=== PATIENT | male | born 1975 | race Two or more races ===

== ENCOUNTER 2021-07-21 20:37 | Inpatient (IN) | payer MEDICAID ==
[~2021-07-21] VITALS: Ht 188 cm; Wt 97.5 kg
--- NOTE | 2021-07-21 20:46 | NUR ---
JESSICA FROM [facility] C/O ABD PAIN X 1 DAY, GIVEN NORCO AND MYLANTA AT 5PM . PATIENT ALERT AND ORIENTED X3. BROUGHT IN BY STRETCHER IN BED 10 ON MONITOR AWAITING MD SNOW.
[2021-07-21] MEDS ORDERED: MORPHINE SULFATE INJ 4 MG/ML DISP.SYRIN ONE ×2 (20:54→23:28)
[2021-07-21] MEDS ORDERED: ONDANSETRON HCL/PF 4 MG/2 ML VIAL ONE (20:54)
[2021-07-21] MEDS ORDERED: PANTOPRAZOLE 40 MG VIAL ONE (20:54)
--- NOTE | 2021-07-21 20:58 | NUR ---
BLOOD COLLECTED AND SENT TO LAB
--- NOTE | 2021-07-21 20:59 | NUR ---
PT UNABLE TO PROVIDE URINE AT THIS TIME, GIVEN URINAL.
--- NOTE | 2021-07-21 20:59 | NUR ---
EMT @ BEDSIDE FOR EKG
[2021-07-21] MEDS ORDERED: MORPHINE SULFATE INJ 2 MG/ML DISP.SYRIN IV ONE ×2 (21:00→23:30)
[2021-07-21] MEDS ORDERED: ONDANSETRON HCL/PF 4 MG/2 ML VIAL IVP ONE (21:00)
[2021-07-21] MEDS ORDERED: PANTOPRAZOLE 40 MG VIAL IV ONE (21:00)
--- NOTE | 2021-07-21 21:01 | NUR ---
[employer] TEACHER AT BEDSIDE
[2021-07-21 21:09] LABS: BASOPHILS # (AUTO) 0.1 K/uL (0.0-0.2); BASOPHILS % (AUTO) 0.6 % (0.0-2.0); EOSINOPHILS % (AUTO) 0.1 % (0.0-6.0); HEMATOCRIT 37 % (39-51); HEMOGLOBIN 12.3 g/dL (13.5-17.5); LYMPHOCYTES # (AUTO) 1.2 K/uL (0.8-4.8); LYMPHOCYTES % (AUTO) 7.1 % (20.0-44.0); MEAN CORPUSCULAR HGB CONC 33 g/dl (31.0-36.0); MEAN CORPUSCULAR VOLUME 86 fL (80-96); MONOCYTES # (AUTO) 1.8 K/uL (0.1-1.30); MONOCYTES % (AUTO) 10.4 % (2.0-12.0); NEUTROPHILS % (AUTO) 81.8 % (43.0-81.0); PLATELET COUNT (AUTO) 239 K/uL (150-450); RED BLOOD CELL COUNT(AUTO) 4.32 MIL/uL (4.5-6.0); WHITE BLOOD COUNT (AUTO) 17.1 K/uL (4.3-11.0)
[2021-07-21 21:25] LABS: ALBUMIN 3.2 g/dL (3.4-5.0); BILIRUBIN,DIRECT 0.2 mg/dL (0.0-0.2); BILIRUBIN,TOTAL 0.6 mg/dL (0.2-1.0); CALCIUM, SERUM 8.8 mg/dL (8.5-10.1); CREATININE 3.6 mg/dL (0.6-1.3); POTASSIUM 5.1 mmol/L (3.5-5.1); TOTAL PROTEIN, SERUM 7.9 g/dL (6.4-8.2)
--- NOTE | 2021-07-21 21:50 | NUR ---
COVID SWAB COLLECTED AND SENT TO LAB
[2021-07-21] MEDS ORDERED: PIPERACILLIN /TAZOBACTAM 3.375 G VIAL IV ONE (21:51)
[2021-07-21] MEDS ORDERED: INSULIN REGULAR, HUMAN 100 UNIT/ML 10 ML VIAL ONE (21:51)
[2021-07-21] MEDS ORDERED: INSULIN REGULAR, HUMAN 100 UNIT/ML 10 ML VIAL IV ONE (22:00)
[2021-07-21] MEDS ORDERED: PIPERACILLIN /TAZOBACTAM 3.375 G in IV D5W 50 ML IV ONE (22:00)
[2021-07-21] MEDS ORDERED: IV NS 0.9% 1,000 ML BAG IV ONE ×2 (22:00)
--- NOTE | 2021-07-21 22:38 | NUR ---
URINE COLLECTED AND SENT TO LAB
[2021-07-21 22:55] LABS: BILIRUBIN,URINE NEGATIVE (NEGATIVE); COLOR,URINE YELLOW (YELLOW); LEUKOCYTE ESTERASE ,URINE MODERATE (NEGATIVE); NITRITE, URINE NEGATIVE (NEGATIVE); PH,URINE 5.5 (5.0-8.0); PROTEIN,URINE TRACE mg/dl (NEGATIVE); UGLUCOSE NEGATIVE (NEGATIVE); UROBILINOGEN,URINE 0.2 EU/dL (0.2)
[2021-07-21 23:05] LABS: BACTERIA,URINE 4+ /HPF (None Seen); RBC,URINE 0-2 /HPF (0-2)
[2021-07-21 23:06] LABS: SQUAMOUS EPITHELIAL CELL,UR Moderate /HPF (None Seen)
[2021-07-21] MEDS ORDERED: ONDANSETRON HCL/PF 4 MG/2 ML VIAL IVP PRN (23:30)
[2021-07-21] MEDS ORDERED: INSULIN GLARGINE, 100 UNIT/ML CARTRIDGE SQ SCH (23:30)
[2021-07-21] MEDS ORDERED: MORPHINE SULFATE INJ 2 MG/ML DISP.SYRIN IV PRN (23:30)
[2021-07-21] MEDS ORDERED: DEXTROSE 50%-WATER 50 ML DISP.SYRIN IV PRN (23:30)
[2021-07-21] MEDS ORDERED: ACETAMINOPHEN 325 MG TABLET PO PRN (23:30)
[2021-07-21] MEDS ORDERED: Z GUARD REMEDY 4 OZ OINT TP PRN (23:30)
--- NOTE | 2021-07-22 00:11 | NUR ---
report given to Indira
--- NOTE | 2021-07-22 00:28 | NUR ---
pt transported to room 323 without incident via reckerman
[2021-07-22] MEDS ORDERED: hydrALAZINE HCL IV 20 MG VIAL IV PRN (00:30)
[2021-07-22 00:41] LABS: ALCOHOL, BLOOD < 3 mg/dL (0-0)
--- NOTE | 2021-07-22 00:50 | NUR ---
DIALYSIS TECHCHART CALCULATOR NOTES RECEIVED PATIENT FROM ED VIA RNEY AT 0020. A/O X4. NO SOB OR NOTED. NON-AMBULATORY. UPPER LEFT EXTREMITY PARALYSIS NOTED. HAS RIGHT AC IV ACCESS #18G AND SALINE LOCKED. NO S/S OF INFILTRATION NOTED. SAFETY PRECAUTIONS IN PLACED. WILL CONTINUE PLAN OF CARE. Addendum: 07/22/21 at 0216 by August JACY ROSS ADMIT TO MS
[2021-07-22 01:30] VITALS: BP 120/54
--- NOTE | 2021-07-22 02:00 | NUR ---
MS RN NOTES RECEIVED REPORT FROM LAB, LACTIC ACID 2.6. NOTIFIED WITH NNO.
[2021-07-22] MEDS: IV NS 0.9% 1,000 ML IV SCH ×2 (02:13→16:12)
[2021-07-22] MEDS ORDERED: PIPERACILLIN /TAZOBACTAM 3.375 G VIAL IV ONE (05:16)
[2021-07-22] MEDS ORDERED: ZOSYN IVPB 3.375 G in IV D5W 50ml IV SCH (06:00)
[2021-07-22 06:27] LABS: BASOPHILS % (AUTO) 0.1 % (0.0-2.0); HEMATOCRIT 31 % (39-51); HEMOGLOBIN 10.6 g/dL (13.5-17.5); LYMPHOCYTES # (AUTO) 1.6 K/uL (0.8-4.8); LYMPHOCYTES % (AUTO) 12.1 % (20.0-44.0); MEAN CORPUSCULAR HGB CONC 34 g/dl (31.0-36.0); MEAN CORPUSCULAR VOLUME 85 fL (80-96); MONOCYTES # (AUTO) 1.5 K/uL (0.1-1.30); MONOCYTES % (AUTO) 11.3 % (2.0-12.0); NEUTROPHILS % (AUTO) 76.5 % (43.0-81.0); PLATELET COUNT (AUTO) 173 K/uL (150-450); RED BLOOD CELL COUNT(AUTO) 3.69 MIL/uL (4.5-6.0); WHITE BLOOD COUNT (AUTO) 13.1 K/uL (4.3-11.0)
[2021-07-22 06:35] LABS: ALBUMIN 2.4 g/dL (3.4-5.0); BILIRUBIN,TOTAL 0.6 mg/dL (0.2-1.0); CALCIUM, SERUM 7.8 mg/dL (8.5-10.1); CREATININE 3.4 mg/dL (0.6-1.3); PHOSPHORUS 3.4 mg/dL (2.5-4.9); TOTAL PROTEIN, SERUM 6.5 g/dL (6.4-8.2)
[2021-07-22] MEDS: BLOOD SUGAR DIAGNOSTIC 1 EACH STRIP IN SCH ×5 (06:40→22:48)
--- NOTE | 2021-07-22 06:44 | NUR ---
MS RN NOTES RECEIVED CALL FROM LAB, GLUCOSE IS 382. NOTIFIED WITH NNO. BLOOD SUGAR IS 379. NO REGULAR INSULIN YET IN THE CASETTE. WILL ENDORSE TO AM NURSE.
--- NOTE | 2021-07-22 07:00 | NUR ---
MS RN OPENING NOTES PATIENT LYING IN BED, A/O X 3, ABLE TO MAKE NEEDS KNOWN. TOLERATING WELL ON O2 AT 2 LPM VIA NASAL CANULA. NO C/O PAIN AT THIS TIME. HAS RIGHT AC IV ACCESS #18G WITH NS RUNNING AT 75 ML/HR. INTACT, PATENT AND FLUSHING. ALL NEEDS ATTENDED. KEPT DRY AND COMFORTABLE. SAFETY PRECAUTIONS IN PLACE: BED LOW AND LOCKED, BED ALARM ON, SIDE RAILS UP X2, CALL LIGHT WITHIN REACH. WILL CONTINUE TO MONITOR.
--- NOTE | 2021-07-22 07:29 | NUR ---
MS RN CLOSING NOTES PATIENT LYING IN BED WITH EYES CLOSED. EASY TO AROUSE. A/O X3. NO ACUTE DISTRESS NOTED. ON O2 AT 2 LPM VIA NASAL CANULA. NO C/O PAIN AT THIS TIME. HAS RIGHT AC IV ACCESS #18G WITH NS RUNNING AT 75 ML/HR. INTACT, PATENT AND FLUSHING. ALL NEEDS ATTENDED. KEPT DRY AND COMFORTABLE. SAFETY PRECAUTIONS IN PLACE: BED LOW AND LOCKED, BED ALARM ON, SIDE RAILS UP X2, CALL LIGHT WITHIN REACH.
[2021-07-22] MEDS ORDERED: FOLI0.8C PO (07:44)
[2021-07-22] MEDS ORDERED: SODI1TAB66 PO (07:44)
[2021-07-22] MEDS ORDERED: CLON0.1T PO (07:44)
[2021-07-22] MEDS ORDERED: AMLO10TA4 PO (07:44)
[2021-07-22] MEDS ORDERED: CARV25TA PO (07:44)
[2021-07-22] MEDS ORDERED: INSU100V39 SQ (07:44)
[2021-07-22] MEDS ORDERED: HYDR12.55 PO (07:44)
[2021-07-22] MEDS ORDERED: BENA40TA8 PO (07:44)
[2021-07-22] MEDS ORDERED: ASCO500C17 PO (07:44)
[2021-07-22] MEDS ORDERED: MULT-447 PO (07:44)
[2021-07-22] MEDS ORDERED: INSU100V7 SQ (07:44)
[2021-07-22] MEDS ORDERED: THIA100T74 PO (07:44)
[2021-07-22] MEDS ORDERED: LIDOCAINE PATCH TD (07:44)
[2021-07-22 08:00] VITALS: BP 115/56
--- NOTE | 2021-07-22 09:42 | NUR ---
WOUND CARE CONSULT: PT PRESENTS WITH SOME DISCOLORATION TO PLANTAR FEET AND SOME SCARRING TO SACRAL AREA, PRESENT ON ADMISSION. RECOMMENDATIONS MADE FOR SKIN PROTECTION. DISCUSSED WITH NURSING STAFF. MD IN AGREEMENT WITH PLAN OF CARE. PT IS ON RUTLEDGE ISOFLEX LOW AIRLOSS BED.
[2021-07-22] MEDS: HEPARIN SODIUM, PORCINE 5000 UNITS/1 ML VIAL SQ SCH ×2 (10:13→21:36)
[2021-07-22] MEDS: INSULIN GLARGINE, 100 UNIT/ML CARTRIDGE SQ SCH ×2 (10:56→18:37)
[2021-07-22] MEDS: INSULIN REGULAR, HUMAN 100 UNIT/ML 3 ML VIAL SQ PRN ×2 (10:59→13:36)
--- NOTE | 2021-07-22 12:00 | NUR ---
MS RN NOTES PATIENT SLIDING SCALE INSULIN HELD FOR 1200 DOSE DUE TO PATIENT NOT EATING LUNCH
[2021-07-22] MEDS: PIPERACILLIN /TAZOBACTAM 3.375 G in IV D5W 100 ML IV SCH ×2 (14:26→21:37)
[2021-07-22 16:00] VITALS: BP 111/62
--- NOTE | 2021-07-22 16:00 | NUR ---
MS RN NOTES PATIENT SLIDING SCALE INSULIN HELD FOR 1600 DUE TO PATIENT NOT EATING.
--- NOTE | 2021-07-22 19:00 | NUR ---
MS RN CLOSING NOTE PATIENT AWAKE IN BED. A/OX3. TOLERATING WELL ON 2 LPM O2 VIA NASAL CANNULA WITH NO S/S RESPIRATORY DISTRESS. R AC # 18 INTACT, CLEAN, AND PATENT WITH WITH NS 75ML/HR. SAFETY MEASURES IN PLACE: BED AT LOWEST POSITION, LOCKED, RAILS UP X2, CALL WINKLER WITHIN REACH. WILL ENDORSE TO MARINE ENGINEERING PROFESSOR FOR ANNA.
--- NOTE | 2021-07-22 19:50 | NUR ---
RN OPENING NOTE PATIENT AWAKE IN BED. A/OX3. NO S/S OF DISTRESS, BREATHING W/ 2L NC W/O DIFFICULTY. RAC #18 INTACT AND PATENT W/ NS 75ML/HR. SAFETY MEASURES IN PLACE: BED AT LOWEST POSITION, LOCKED, RAILS UP X2, CALL WINKLER WITHIN REACH. WILL CONTINUE TO MONITOR PATIENT.
[2021-07-22 20:00] VITALS: BP 98/52
[2021-07-22] MEDS ORDERED: INSULIN REGULAR, HUMAN 100 UNIT/ML 3 ML VIAL SQ PRN (22:30)
[2021-07-22] MEDS ORDERED: *INSULIN REGULAR(HUMULIN R)HUM 100 UNIT/ML VIAL SQ PRN (22:30)
[2021-07-22] MEDS ORDERED: DEXTROSE 50%-WATER 50 ML DISP.SYRIN IV PRN ×2 (22:30→23:00)
[2021-07-22] MEDS: *INSULIN REGULAR(HUMULIN R)HUM 100 UNIT/ML VIAL SQ PRN (22:54)
[2021-07-23] MEDS: IV NS 0.9% 1,000 ML IV SCH ×2 (02:58→14:27)
[2021-07-23] MEDS: PIPERACILLIN /TAZOBACTAM 3.375 G in IV D5W 100 ML IV SCH ×3 (05:02→21:12)
[2021-07-23 06:16] LABS: BASOPHILS % (AUTO) 0.3 % (0.0-2.0); EOSINOPHILS % (AUTO) 0.1 % (0.0-6.0); HEMATOCRIT 31 % (39-51); HEMOGLOBIN 10.6 g/dL (13.5-17.5); LYMPHOCYTES # (AUTO) 1.5 K/uL (0.8-4.8); LYMPHOCYTES % (AUTO) 13.1 % (20.0-44.0); MEAN CORPUSCULAR HGB CONC 34 g/dl (31.0-36.0); MEAN CORPUSCULAR VOLUME 85 fL (80-96); MONOCYTES # (AUTO) 1.1 K/uL (0.1-1.30); MONOCYTES % (AUTO) 9.3 % (2.0-12.0); NEUTROPHILS # (AUTO) 8.8 K/uL (1.8-8.9); NEUTROPHILS % (AUTO) 77.2 % (43.0-81.0); PLATELET COUNT (AUTO) 180 K/uL (150-450); RED BLOOD CELL COUNT(AUTO) 3.67 MIL/uL (4.5-6.0); WHITE BLOOD COUNT (AUTO) 11.4 K/uL (4.3-11.0)
[2021-07-23 06:20] LABS: ALBUMIN 2.3 g/dL (3.4-5.0); BILIRUBIN,DIRECT 0.1 mg/dL (0.0-0.2); BILIRUBIN,TOTAL 0.4 mg/dL (0.2-1.0); CALCIUM, SERUM 7.9 mg/dL (8.5-10.1); CREATININE 3.4 mg/dL (0.6-1.3); MAGNESIUM 2.2 mg/dL (1.8-2.4); PHOSPHORUS 3.7 mg/dL (2.5-4.9); POTASSIUM 4.4 mmol/L (3.5-5.1); TOTAL PROTEIN, SERUM 6.8 g/dL (6.4-8.2)
[2021-07-23] MEDS: INSULIN REGULAR, HUMAN 100 UNIT/ML 3 ML VIAL SQ PRN ×3 (06:29→18:30)
[2021-07-23] MEDS: BLOOD SUGAR DIAGNOSTIC 1 EACH STRIP IN SCH ×4 (06:31→21:53)
--- NOTE | 2021-07-23 06:50 | NUR ---
RN NOTE SPOKE W/ PATIENT'S MOTHER (NERY PULIDO) USING HER CONTACT NUMBER IN CHART. CALLED MOTHER AND VERIFIED CORRECT PATIENT, HER SON, BEFORE DISCUSSING FURTHER. PATIENT'S MOTHER STATES SHE LIVES IN [facility] AND THAT IT IS DIFFICULT FOR HER TO COME SEE HIM. ALL QUESTIONS AND CONCERNS WERE ANSWERED AND ADDRESSED. PATIENT REMAINS STABLE; WILL CONTINUE TO MONITOR PATIENT.
--- NOTE | 2021-07-23 07:03 | NUR ---
RN CLOSING NOTE PATIENT ASLEEP IN BED. A/OX3. NO S/S OF DISTRESS; BREATHING ON RM AIR W/O DIFFICULTY. RAC #18 INTACT AND PATENT W/ NS 125ML/HR. SAFETY MEASURES IN PLACE: BED AT LOWEST POSITION, LOCKED, RAILS UP X2, CALL WINKLER WITHIN REACH. WILL ENDORSE TO NEXT SHIFT FOR ANNA.
[2021-07-23] MEDS ORDERED: BLOOD SUGAR DIAGNOSTIC 1 EACH STRIP IN SCH (07:30)
[2021-07-23] MEDS: INSULIN GLARGINE, 100 UNIT/ML CARTRIDGE SQ SCH (09:00)
[2021-07-23] MEDS: HEPARIN SODIUM, PORCINE 5000 UNITS/1 ML VIAL SQ SCH ×2 (10:31→21:23)
[2021-07-23] MEDS ORDERED: INSULIN GLARGINE, 100 UNIT/ML CARTRIDGE SQ SCH (17:00)
[2021-07-23] MEDS: MUPIROCIN OINT 2% 22 GM TUBE NS SCH ×2 (17:47→21:22)
--- NOTE | 2021-07-23 18:00 | NUR ---
RECEIVED PT. IN AM ,SLUGGISH,VS STABLE.INADVERTENTLY PULLED IV OUT. RE STARTED RT. FOREARM.JB HELD TODAY PT. NOT EATING.
[2021-07-23 20:00] VITALS: BP 146/78
--- NOTE | 2021-07-23 20:08 | NUR ---
RECEIVED PATIENT IN BED, ALERT/ORIENTED X3, STABLE ON ROOM AIR, NO DISTRESS, NO COMPLAIN OF PAIN, BEDREST, PER PATIENT, NOT AMBULATING, IVF AT 125 ML/HR, PER REPORT, POOR APPETITE, NEEDS ATTENDED, WILL CONTINUE TO MONITOR.
[2021-07-23] MEDS: *INSULIN REGULAR(HUMULIN R)HUM 100 UNIT/ML VIAL SQ PRN (21:52)
[2021-07-24] MEDS: IV NS 0.9% 1,000 ML IV SCH ×2 (02:43→10:42)
[2021-07-24] MEDS: PIPERACILLIN /TAZOBACTAM 3.375 G in IV D5W 100 ML IV SCH ×3 (04:51→21:35)
[2021-07-24 06:13] LABS: BASOPHILS % (AUTO) 0.2 % (0.0-2.0); EOSINOPHILS % (AUTO) 0.2 % (0.0-6.0); HEMATOCRIT 28 % (39-51); HEMOGLOBIN 9.7 g/dL (13.5-17.5); LYMPHOCYTES # (AUTO) 1.2 K/uL (0.8-4.8); LYMPHOCYTES % (AUTO) 14.1 % (20.0-44.0); MEAN CORPUSCULAR HGB CONC 34 g/dl (31.0-36.0); MEAN CORPUSCULAR VOLUME 85 fL (80-96); MONOCYTES # (AUTO) 0.8 K/uL (0.1-1.30); MONOCYTES % (AUTO) 9.2 % (2.0-12.0); NEUTROPHILS # (AUTO) 6.3 K/uL (1.8-8.9); NEUTROPHILS % (AUTO) 76.3 % (43.0-81.0); PLATELET COUNT (AUTO) 193 K/uL (150-450); RED BLOOD CELL COUNT(AUTO) 3.33 MIL/uL (4.5-6.0); WHITE BLOOD COUNT (AUTO) 8.2 K/uL (4.3-11.0)
[2021-07-24 06:22] LABS: CALCIUM, SERUM 7.9 mg/dL (8.5-10.1); CREATININE 2.5 mg/dL (0.6-1.3); MAGNESIUM 2.3 mg/dL (1.8-2.4); PHOSPHORUS 3.2 mg/dL (2.5-4.9)
[2021-07-24] MEDS: INSULIN REGULAR, HUMAN 100 UNIT/ML 3 ML VIAL SQ PRN ×3 (06:33→17:19)
[2021-07-24 06:35] LABS: ALBUMIN 2.2 g/dL (3.4-5.0); BILIRUBIN,DIRECT 0.1 mg/dL (0.0-0.2); BILIRUBIN,TOTAL 0.3 mg/dL (0.2-1.0); TOTAL PROTEIN, SERUM 6.6 g/dL (6.4-8.2)
--- NOTE | 2021-07-24 06:43 | NUR ---
ALERT/ORIENTED X3, ROOM AIR, NO EPIGASTRIC PAIN, TOLERATING ORAL DIET, USES URINAL, FREQUENT URINATION, DRINKING FLUIDS, IVF AT 150 ML/HR, ACCUCHECK AND SLIDING SCALE, GI CONSULT FOR EPIGASTRIC PAIN, CONTINUE IVF FOR CKD, AVOID NEPHROTOXINS
[2021-07-24] MEDS: BLOOD SUGAR DIAGNOSTIC 1 EACH STRIP IN SCH ×4 (07:46→22:25)
[2021-07-24 08:00] VITALS: BP 151/51
[2021-07-24] MEDS: MUPIROCIN OINT 2% 22 GM TUBE NS SCH ×2 (10:31→21:22)
[2021-07-24] MEDS: HEPARIN SODIUM, PORCINE 5000 UNITS/1 ML VIAL SQ SCH ×2 (10:31→21:33)
[2021-07-24] MEDS: INSULIN GLARGINE, 100 UNIT/ML CARTRIDGE SQ SCH ×2 (10:32→17:22)
[2021-07-24] MEDS: PANTOPRAZOLE 40 MG TABLET.DR PO SCH (10:32)
[2021-07-24 10:43] LABS: ALBUMIN 2.1 g/dL (3.4-5.0); BILIRUBIN,DIRECT 0.1 mg/dL (0.0-0.2); BILIRUBIN,TOTAL 0.2 mg/dL (0.2-1.0); TOTAL PROTEIN, SERUM 6.8 g/dL (6.4-8.2)
[2021-07-24] MEDS: SUCRALFATE 1 G/10 ML UDC GT SCH ×2 (13:27→17:17)
[2021-07-24 16:00] VITALS: BP 128/80
--- NOTE | 2021-07-24 19:10 | NUR ---
MS RN OPENING NOTES RECEIVED PATIENT ON BED; AWAKE, ALERT AND ORIENTED X3. BREATHING EVENLY AND UNLABORED. NOT IN ANY FORM OF ACUTE DISTRESS. ON ROOM AIR, WELL TOLERATED. DENIES ANY PAIN OR DISCOMFORT OF THIS TIME. WITH IV ACCESS ON RIGHT FOREARM INFUSING WELL WITH NS 1L REGULATED AT 150 ML/HR; PATENT AND INTACT. ABLE TO MAKE NEEDS KNOWN. SAFETY MEASURES IMPLEMENTED: CALL LIGHT AND TABLE WITHIN EASY REACH, SIDE RAILS UP X2, BED IN LOWEST LOCKED POSITION. WILL CONTINUE TO MONITOR.
[2021-07-24 20:00] VITALS: BP 129/73
[2021-07-24] MEDS: *INSULIN REGULAR(HUMULIN R)HUM 100 UNIT/ML VIAL SQ PRN (22:40)
[2021-07-25] MEDS: PIPERACILLIN /TAZOBACTAM 3.375 G in IV D5W 100 ML IV SCH ×3 (05:29→20:40)
[2021-07-25] MEDS: IV NS 0.9% 1,000 ML IV SCH ×6 (05:30→21:42)
--- NOTE | 2021-07-25 06:30 | NUR ---
MS RN NOTES BLOOD SUGAR CHECKED WITH RESULT OF 218 MG/DL; 8 UNITS OF INSULIN GIVEN SQ PER SLIDING SCALE ORDERED.
[2021-07-25 06:39] LABS: BASOPHILS % (AUTO) 0.4 % (0.0-2.0); EOSINOPHILS % (AUTO) 0.8 % (0.0-6.0); HEMATOCRIT 29 % (39-51); HEMOGLOBIN 9.8 g/dL (13.5-17.5); LYMPHOCYTES # (AUTO) 1.3 K/uL (0.8-4.8); MEAN CORPUSCULAR HGB CONC 34 g/dl (31.0-36.0); MEAN CORPUSCULAR VOLUME 83 fL (80-96); MONOCYTES # (AUTO) 0.8 K/uL (0.1-1.30); MONOCYTES % (AUTO) 10.7 % (2.0-12.0); NEUTROPHILS # (AUTO) 5.4 K/uL (1.8-8.9); NEUTROPHILS % (AUTO) 71.1 % (43.0-81.0); PLATELET COUNT (AUTO) 214 K/uL (150-450); RED BLOOD CELL COUNT(AUTO) 3.43 MIL/uL (4.5-6.0); WHITE BLOOD COUNT (AUTO) 7.6 K/uL (4.3-11.0)
[2021-07-25] MEDS: INSULIN REGULAR, HUMAN 100 UNIT/ML 3 ML VIAL SQ PRN ×3 (06:50→17:34)
--- NOTE | 2021-07-25 07:15 | NUR ---
MS RN CLOSING NOTES PATIENT IS ON BED; AWAKE, ALERT AND ORIENTED X3. BREATHING IS EVEN AND NONLABORED. NOT IN ANY FORM OF ACUTE DISTRESS. ON ROOM AIR, WELL TOLERATED. DENIES ANY PAIN OR DISCOMFORT OF THIS TIME. WITH IV ACCESS ON RIGHT FOREARM INFUSING WELL WITH NS 1L REGULATED AT 150 ML/HR; PATENT AND INTACT. NEEDS ATTENDED TO. SAFETY MEASURES IN PLACED. ENDORSED TO MORNING SHIFT FOR CONTINUITY OF CARE.
--- NOTE | 2021-07-25 07:27 | NUR ---
MS RN OPENING NOTES RECEIVED PT IS AWAKE IN BED, A/O X3. ABLE TO MAKE NEEDS KNOWN. ON RA, TOLERATING WELL. BREATHING IS EVEN AND UNLABORED WITH NO SIGN OF RESPIRATORY DISTRESS. DENIES ANY PAIN OR DISCOMFORT AT THIS TIME. IV ACCESS ON RFA G #22, INTACT AND PATENT WITH NS RUNNING AT 150 ML/HR. SAFETY MEASURES IN PLACE: BED IN LOWEST AND LOCKED POSITION, CALL LIGHT WITHIN EASY REACH, SIDE RAILS UPX2. WILL CONTINUE TO MONITOR
[2021-07-25 07:28] LABS: ALBUMIN 2.2 g/dL (3.4-5.0); BILIRUBIN,DIRECT 0.1 mg/dL (0.0-0.2); BILIRUBIN,TOTAL 0.3 mg/dL (0.2-1.0); CALCIUM, SERUM 8.7 mg/dL (8.5-10.1); CREATININE 1.9 mg/dL (0.6-1.3); MAGNESIUM 2.4 mg/dL (1.8-2.4); PHOSPHORUS 2.5 mg/dL (2.5-4.9); POTASSIUM 4.1 mmol/L (3.5-5.1); TOTAL PROTEIN, SERUM 7.1 g/dL (6.4-8.2)
[2021-07-25] MEDS: PANTOPRAZOLE 40 MG TABLET.DR PO SCH (08:14)
[2021-07-25] MEDS: SUCRALFATE 1 G/10 ML UDC GT SCH (08:14)
[2021-07-25 08:15] VITALS: BP 128/73
[2021-07-25] MEDS: BLOOD SUGAR DIAGNOSTIC 1 EACH STRIP IN SCH ×4 (08:29→22:01)
[2021-07-25] MEDS: GLUCERNA SHAKE 237 ML CAN PO SCH (09:00)
[2021-07-25] MEDS: HEPARIN SODIUM, PORCINE 5000 UNITS/1 ML VIAL SQ SCH ×2 (09:00→20:26)
[2021-07-25] MEDS: INSULIN GLARGINE, 100 UNIT/ML CARTRIDGE SQ SCH ×2 (09:00→17:00)
[2021-07-25] MEDS: MUPIROCIN OINT 2% 22 GM TUBE NS SCH ×2 (10:47→20:40)
[2021-07-25] MEDS: SUCRALFATE 1 G TABLET PO SCH ×2 (12:00→17:30)
[2021-07-25] MEDS ORDERED: ANESTHESIA TRAY IN PYXIS 1 EA TRAY MC ONE (13:57)
--- NOTE | 2021-07-25 15:54 | NUR ---
RN NOTES PT UNABLE TO SIGN CONSENT FOR BILIARY STENT REMOVAL DUE TO LEFT HEMIPARESIS BUT GAVE VERBAL CONSENT. WITH CODY DELAROSA AT THE BED SIDE THE SECOND WITNESS AT 0692.
[2021-07-25 15:57] VITALS: BP 135/75
[2021-07-25] MEDS ORDERED: FAMOTIDINE/PF INJ 20 MG/2 ML VIAL IV ONE (16:48)
[2021-07-25] MEDS ORDERED: SUCCINYLCHOLINE CHLORIDE 20 MG/ML VIAL ONE (16:48)
--- NOTE | 2021-07-25 17:30 | NUR ---
RN NOTES PT WAS PICKED UP BY OR NURSE KIP FOR BILIARY STENT REMOVAL PROCEDURE. PT STABLE WITH NO SIGN OF DISTRESS.
[2021-07-25] MEDS ORDERED: IOHEXOL 240MG/ML 50 ML IV ONE (17:41)
[2021-07-25] MEDS ORDERED: INDOMETHACIN 50 MG SUPP.RECT ONE (17:42)
--- NOTE | 2021-07-25 19:32 | NUR ---
MS RN CLOSING NOTES PT IS STILL OUT FOR PROCEDURE FOR BILIARY STENT REMOVAL. ENDORSED TO THE ENTOMOLOGY TEACHER NURSE.
[2021-07-25 20:00] VITALS: BP 147/84
--- NOTE | 2021-07-25 20:00 | NUR ---
MS RN OPENING NOTES PT RETURNED FROM SURGERY AT THIS TIME. A/O X3. ABLE TO MAKE NEEDS KNOWN. PT STABLE ON ROOM AIR. NO SOB OR S/S OF RESPIRATORY DISTRESS. BREATHING EVEN AND UNLABORED. DENIES ANY PAIN OR DISCOMFORT AT THIS TIME. IV ACCESS ON RFA G #22, INTACT AND PATENT RUNNING NS @ 150 ML/HR. SAFETY PRECAUTIONS IN PLACE. BED IN LOWEST LOCKED POSITION, HOB ELEVATED, SIDE RAILS UP X2, AND CALL LIGHT AND TABLE WITHIN REACH. ALL NEEDS MET AT THIS TIME.
[2021-07-25] MEDS: *INSULIN REGULAR(HUMULIN R)HUM 100 UNIT/ML VIAL SQ PRN (22:17)
[2021-07-26] MEDS: IV NS 0.9% 1,000 ML IV SCH ×4 (04:26→23:48)
[2021-07-26] MEDS: PIPERACILLIN /TAZOBACTAM 3.375 G in IV D5W 100 ML IV SCH ×3 (04:28→20:33)
[2021-07-26] MEDS: BLOOD SUGAR DIAGNOSTIC 1 EACH STRIP IN SCH ×4 (06:37→21:59)
[2021-07-26] MEDS: INSULIN REGULAR, HUMAN 100 UNIT/ML 3 ML VIAL SQ PRN ×3 (06:38→17:19)
[2021-07-26 06:51] LABS: BASOPHILS % (AUTO) 0.5 % (0.0-2.0); HEMATOCRIT 28 % (39-51); HEMOGLOBIN 9.5 g/dL (13.5-17.5); LYMPHOCYTES # (AUTO) 1.5 K/uL (0.8-4.8); MEAN CORPUSCULAR HGB CONC 34 g/dl (31.0-36.0); MEAN CORPUSCULAR VOLUME 85 fL (80-96); MONOCYTES # (AUTO) 0.6 K/uL (0.1-1.30); MONOCYTES % (AUTO) 9.4 % (2.0-12.0); NEUTROPHILS # (AUTO) 4.5 K/uL (1.8-8.9); NEUTROPHILS % (AUTO) 67.1 % (43.0-81.0); PLATELET COUNT (AUTO) 196 K/uL (150-450); RED BLOOD CELL COUNT(AUTO) 3.32 MIL/uL (4.5-6.0); WHITE BLOOD COUNT (AUTO) 6.7 K/uL (4.3-11.0)
--- NOTE | 2021-07-26 06:58 | NUR ---
MS RN CLOSING NOTES PT AWAKE IN BED. A/O X3. ABLE TO MAKE NEEDS KNOWN. PT STABLE ON ROOM AIR. NO SOB OR S/S OF RESPIRATORY DISTRESS. BREATHING EVEN AND UNLABORED. DENIES ANY PAIN OR DISCOMFORT AT THIS TIME. IV ACCESS ON RFA G #22, INTACT AND PATENT RUNNING NS @ 150 ML/HR. KEPT NPO AFTER MIDNIGHT. SAFETY PRECAUTIONS IN PLACE AT ALL TIMES. BED IN LOWEST LOCKED POSITION, HOB ELEVATED, SIDE RAILS UP X2, AND CALL LIGHT AND TABLE WITHIN REACH. ALL NEEDS MET AT THIS TIME AND WILL ENDORSE TO ONCOMING NURSE FOR ANNA.
[2021-07-26] MEDS: PANTOPRAZOLE 40 MG TABLET.DR PO SCH (07:30)
[2021-07-26] MEDS: SUCRALFATE 1 G TABLET PO SCH ×3 (07:30→17:20)
[2021-07-26 07:44] LABS: ALBUMIN 2.1 g/dL (3.4-5.0); BILIRUBIN,DIRECT 0.2 mg/dL (0.0-0.2); BILIRUBIN,TOTAL 0.4 mg/dL (0.2-1.0); CALCIUM, SERUM 8.4 mg/dL (8.5-10.1); CREATININE 1.7 mg/dL (0.6-1.3); MAGNESIUM 2.3 mg/dL (1.8-2.4); PHOSPHORUS 3.2 mg/dL (2.5-4.9); POTASSIUM 4.6 mmol/L (3.5-5.1); TOTAL PROTEIN, SERUM 6.5 g/dL (6.4-8.2)
--- NOTE | 2021-07-26 07:49 | NUR ---
MS RN OPENING NOTES RECEIVED PATIENT AWAKE IN BED. A/O X3. ABLE TO MAKE NEEDS KNOWN. PT STABLE ON ROOM AIR. NO SOB OR S/SX OF RESPIRATORY DISTRESS. BREATHING EVEN AND UNLABORED. DENIES ANY PAIN OR DISCOMFORT AT THIS TIME. IV ACCESS ON RFA G #22, INTACT AND PATENT RUNNING NS @ 150 ML/HR. NPO AFTER MIDNIGHT FOR GASTRIC EMPTYING STUDY. SAFETY PRECAUTIONS IN PLACE; BED IN LOWEST LOCKED POSITION, HOB ELEVATED, SIDE RAILS UP X2, AND CALL LIGHT AND TABLE WITHIN REACH. WILL CONTINUE TO MONITOR PATIENT.
--- NOTE | 2021-07-26 08:05 | NUR ---
MS RN NOTES ENDORSED PATIENT TO NURSE EAGLE FOR ANNA
--- NOTE | 2021-07-26 08:13 | NUR ---
RN OPENING NOTE PATIENT RECEIVED IN BED, AO X 3, ABLE TO RESPONDS ALL STIMULI. IN NO ACUTE DISTRESS NOTED. RESPIRATORY EVEN AND UNLABORED ON ROOM. SKIN IS WARM TO TOUCH, KEEP CLEAN/DRY, INTACT IV SITE. KEPT ELEVATED HOB FOR ENSURE AIRWAY AND ASPIRATION PRECAUTION, ALSO LOWEST POSITION OF THE BED, S/R UP X 3, ALL SAFETY PRECAUTION APPLIED. CALL LIGHT WITHIN REACH, WILL CONTINUE TO MONITOR.
[2021-07-26 08:28] VITALS: BP 158/80
[2021-07-26] MEDS: GLUCERNA SHAKE 237 ML CAN PO SCH (09:00)
[2021-07-26] MEDS: INSULIN GLARGINE, 100 UNIT/ML CARTRIDGE SQ SCH ×2 (09:00→17:17)
[2021-07-26] MEDS: HEPARIN SODIUM, PORCINE 5000 UNITS/1 ML VIAL SQ SCH ×2 (09:40→20:34)
[2021-07-26] MEDS: MUPIROCIN OINT 2% 22 GM TUBE NS SCH ×2 (09:40→20:33)
--- NOTE | 2021-07-26 11:11 | NUR ---
PATIENT HAS BEEN NPO FOR GASTRIC EMPTING STUDY BUT CAMERA IS DOWN. INFORMED DR. SUAREZ AND NEW ORDER:RESUME DIET, NPO AFTER MIDNIGHT.
[2021-07-26 16:10] VITALS: BP 163/96
--- NOTE | 2021-07-26 18:05 | NUR ---
RN CLOSE NOTE PATIENT IN BED, IN NO ACUTE DISTRESS OBSERVED. RESPIRATION EVEN AND UNLABORED ON ROOM AIR. SKIN IS WARM TO TOUCH KEEP CLEAN//DRY, INTACT IV SITE. KEPT ELEVATED HOB FOR ENSURE AIRWAY AND ASPIRATION PRECAUTION. ALSO LOWEST POSITION OF THE BED FOR SAFETY. CALL LIGHT WITHIN REACH, WILL ENDORSE TO DISTRIBUTION CENTER ASSISTANT.
--- NOTE | 2021-07-26 19:47 | NUR ---
MS RN OPENING NOTES RECEIVED PT AWAKE IN BED. A/O X3. ABLE TO MAKE NEEDS KNOWN. PT STABLE ON ROOM AIR. NO SOB OR S/S OF RESPIRATORY DISTRESS. BREATHING EVEN AND UNLABORED. DENIES ANY PAIN OR DISCOMFORT AT THIS TIME. IV ACCESS ON RFA G #22, INTACT AND PATENT RUNNING NS @ 150 ML/HR. SAFETY PRECAUTIONS IN PLACE. BED IN LOWEST LOCKED POSITION, HOB ELEVATED, SIDE RAILS UP X2, AND CALL LIGHT AND TABLE WITHIN REACH. ALL NEEDS MET AT THIS TIME.
[2021-07-26 20:00] VITALS: BP 148/91
[2021-07-26] MEDS: *INSULIN REGULAR(HUMULIN R)HUM 100 UNIT/ML VIAL SQ PRN (22:02)
[2021-07-27] MEDS: PIPERACILLIN /TAZOBACTAM 3.375 G in IV D5W 100 ML IV SCH ×3 (05:02→21:36)
[2021-07-27 06:13] LABS: ALBUMIN 2.1 g/dL (3.4-5.0); BILIRUBIN,TOTAL 0.3 mg/dL (0.2-1.0); CALCIUM, SERUM 8.8 mg/dL (8.5-10.1); CREATININE 1.5 mg/dL (0.6-1.3); PHOSPHORUS 2.8 mg/dL (2.5-4.9); POTASSIUM 4.2 mmol/L (3.5-5.1); TOTAL PROTEIN, SERUM 6.7 g/dL (6.4-8.2)
[2021-07-27 06:30] LABS: BASOPHILS % (AUTO) 0.5 % (0.0-2.0); EOSINOPHILS % (AUTO) 1.2 % (0.0-6.0); HEMATOCRIT 30 % (39-51); LYMPHOCYTES # (AUTO) 1.4 K/uL (0.8-4.8); LYMPHOCYTES % (AUTO) 19.4 % (20.0-44.0); MEAN CORPUSCULAR HGB CONC 34 g/dl (31.0-36.0); MEAN CORPUSCULAR VOLUME 85 fL (80-96); MONOCYTES # (AUTO) 0.7 K/uL (0.1-1.30); MONOCYTES % (AUTO) 9.3 % (2.0-12.0); NEUTROPHILS # (AUTO) 5.2 K/uL (1.8-8.9); NEUTROPHILS % (AUTO) 69.6 % (43.0-81.0); PLATELET COUNT (AUTO) 218 K/uL (150-450); RED BLOOD CELL COUNT(AUTO) 3.47 MIL/uL (4.5-6.0); WHITE BLOOD COUNT (AUTO) 7.4 K/uL (4.3-11.0)
[2021-07-27] MEDS: BLOOD SUGAR DIAGNOSTIC 1 EACH STRIP IN SCH ×4 (06:31→22:43)
[2021-07-27] MEDS: INSULIN REGULAR, HUMAN 100 UNIT/ML 3 ML VIAL SQ PRN ×3 (06:32→18:21)
--- NOTE | 2021-07-27 06:43 | NUR ---
MS RN CLOSING NOTES PT AWAKE IN BED. A/O X3. ABLE TO MAKE NEEDS KNOWN. PT STABLE ON ROOM AIR. NO SOB OR S/S OF RESPIRATORY DISTRESS. BREATHING EVEN AND UNLABORED. DENIES ANY PAIN OR DISCOMFORT AT THIS TIME. IV ACCESS ON RFA G #22, INTACT AND PATENT RUNNING NS @ 150 ML/HR. SAFETY PRECAUTIONS IN PLACE AT ALL TIMES. BED IN LOWEST LOCKED POSITION, HOB ELEVATED, SIDE RAILS UP X2, AND CALL LIGHT AND TABLE WITHIN REACH. ALL NEEDS MET AT THIS TIME AND WILL ENDORSE TO ONCOMING NURSE FOR ANNA.
[2021-07-27] MEDS: SUCRALFATE 1 G TABLET PO SCH ×3 (07:30→18:19)
[2021-07-27 08:00] VITALS: BP 165/96
[2021-07-27] MEDS: INSULIN GLARGINE, 100 UNIT/ML CARTRIDGE SQ SCH ×2 (09:00→18:23)
[2021-07-27] MEDS: GLUCERNA SHAKE 237 ML CAN PO SCH (09:00)
[2021-07-27] MEDS: PANTOPRAZOLE 40 MG TABLET.DR PO SCH (11:58)
[2021-07-27] MEDS: HEPARIN SODIUM, PORCINE 5000 UNITS/1 ML VIAL SQ SCH ×2 (12:00→21:37)
[2021-07-27] MEDS: MUPIROCIN OINT 2% 22 GM TUBE NS SCH ×2 (12:02→21:45)
[2021-07-27] MEDS: IV NS 0.9% 1,000 ML IV SCH ×3 (14:29→20:35)
[2021-07-27 16:00] VITALS: BP 136/83
--- NOTE | 2021-07-27 18:00 | NUR ---
RECEIVED PT. IN AM .VS STABLE.NO COMPLAINTS,INITIALLY NPO FOR POSSIBLE GASTRIC EMPTYING STUDY.THEN DC ORDER GIVEN.MD IN AND ORDERED DISCH.DUE TO LATE ORDER TO FEED PT. AM JB HELD.RN SPOKE WITH GAS STATION CASHIER. AND NO DISCHARGE TODAY NEEDS A SKILLED AUTHORIZATION BEFORE SENDING PT. BACK TO [facility].
[2021-07-27 20:00] VITALS: BP 139/98
--- NOTE | 2021-07-27 20:18 | NUR ---
RN OPENING NOTES: RECEIVED PATIENT SLEEP IN BED COMFORTABLY, AROUSABLE TO VERBAL STIMULI, BED IN LOW POSITION CALL LIGHTS WITHIN REACH, NO COMPLAIN OF PAIN AND DISCOMFORT AT THIS TIME, ON RA SATURATING WELL, WITH I V LINE AT RFA#22 WITH ONGOING NSS @150ML/HR INFUSING WELL, PATIENT ON BED REST BED IN LOW POSITION, CALL LIGHTS WITHIN REACH, WILL CONTINUE TO MONITOR.
[2021-07-27] MEDS: *INSULIN REGULAR(HUMULIN R)HUM 100 UNIT/ML VIAL SQ PRN (22:40)
[2021-07-28] MEDS: PIPERACILLIN /TAZOBACTAM 3.375 G in IV D5W 100 ML IV SCH (04:50)
[2021-07-28] MEDS: INSULIN REGULAR, HUMAN 100 UNIT/ML 3 ML VIAL SQ PRN ×4 (06:44→21:41)
--- NOTE | 2021-07-28 07:28 | NUR ---
RN CLOSING NOTES: PATIENT SLEEP IN BED COMFORTABLY, AROUSABLE TO VERBAL STIMULI, BED IN LOW POSITION CALL LIGHTS WITHIN REACH, NO COMPLAIN OF PAIN AND DISCOMFORT AT THIS TIME, ON ROOM AIR SATURATING WELL, WITH IV LINE AT RFA #22 WITH ONGOING NSS@15O ML/HR INFUSING WELL, PATIENT KEPT CLEAN AND DRY ALL NEEDS MET ENDORSE TO INCOMING SHIFT.
[2021-07-28] MEDS: BLOOD SUGAR DIAGNOSTIC 1 EACH STRIP IN SCH ×4 (07:50→21:39)
[2021-07-28] MEDS: PANTOPRAZOLE 40 MG TABLET.DR PO SCH (07:51)
[2021-07-28] MEDS: SUCRALFATE 1 G TABLET PO SCH ×3 (07:51→16:31)
[2021-07-28 08:00] VITALS: BP 174/95
[2021-07-28] MEDS: INSULIN GLARGINE, 100 UNIT/ML CARTRIDGE SQ SCH ×2 (09:15→16:33)
[2021-07-28] MEDS: HEPARIN SODIUM, PORCINE 5000 UNITS/1 ML VIAL SQ SCH ×2 (09:18→21:24)
[2021-07-28] MEDS: GLUCERNA SHAKE 237 ML CAN PO SCH (09:25)
[2021-07-28] MEDS: MUPIROCIN OINT 2% 22 GM TUBE NS SCH ×2 (09:25→21:25)
[2021-07-28] MEDS: IV NS 0.9% 1,000 ML IV SCH ×2 (09:45→14:24)
[2021-07-28 16:00] VITALS: BP 144/78
[2021-07-28] MEDS: *INSULIN REGULAR(HUMULIN R)HUM 100 UNIT/ML VIAL SQ PRN (16:33)
--- NOTE | 2021-07-28 18:23 | NUR ---
RN CLOSE NOTE PATIENT IN BED, IN NO ACUTE DISTRESS OBSERVED. RESPIRATION EVEN AND UNLABORED ON ROOM AIR. SKIN IS WARM TO TOUCH KEEP CLEAN//DRY, INTACT IV SITE. KEPT ELEVATED HOB FOR ENSURE AIRWAY AND ASPIRATION PRECAUTION. ALSO LOWEST POSITION OF THE BED FOR SAFETY. CALL LIGHT WITHIN REACH, WILL ENDORSE TO HYDRAMATIC MECHANIC.
--- NOTE | 2021-07-28 19:10 | NUR ---
MS RN OPENING NOTES: RECEIVED PATIENT IN BED, ASLEEP, EASILY AROUSABLE, NO S/S OF DISTRESS NOTED. NO COMPLAIN OF PAIN. CALL LIGHT WITHIN REACH. BED ALARM ON. BED IN LOWEST AND LOCKED POSITION. CALL LIGHT WITHIN REACH. HOB ELEVATED. URINAL AT THE BEDSIDE.
[2021-07-28 20:00] VITALS: BP 145/80
[2021-07-29] MEDS: IV NS 0.9% 1,000 ML IV SCH (02:36)
[2021-07-29] MEDS: INSULIN REGULAR, HUMAN 100 UNIT/ML 3 ML VIAL SQ PRN (06:33)
[2021-07-29] MEDS: BLOOD SUGAR DIAGNOSTIC 1 EACH STRIP IN SCH ×3 (06:33→17:27)
--- NOTE | 2021-07-29 07:30 | NUR ---
MS RN OPENING NOTES RECEIVED PATIENT IN BED, A/OX4. DENIES PAIN AT THIS TIME. ON RA WITH NO S/SX OF DISTRESS NOTED. RFA G#22 INTACT AND PATENT WITH NS RUNNING @150ML/HR. SAFETY MEASURES IN PLACE. CALL LIGHT WITHIN REACH. WILL CONTINUE TO MONITOR PATIENT
[2021-07-29 08:28] VITALS: BP 185/106
[2021-07-29] MEDS: PANTOPRAZOLE 40 MG TABLET.DR PO SCH (09:09)
[2021-07-29] MEDS: SUCRALFATE 1 G TABLET PO SCH ×3 (09:09→17:27)
[2021-07-29] MEDS: GLUCERNA SHAKE 237 ML CAN PO SCH ×3 (09:30→17:34)
[2021-07-29] MEDS: INSULIN GLARGINE, 100 UNIT/ML CARTRIDGE SQ SCH ×2 (09:34→17:04)
[2021-07-29] MEDS: MUPIROCIN OINT 2% 22 GM TUBE NS SCH (09:49)
[2021-07-29] MEDS: *INSULIN REGULAR(HUMULIN R)HUM 100 UNIT/ML VIAL SQ PRN ×2 (13:01→17:04)
--- NOTE | 2021-07-29 15:00 | NUR ---
RN NOTES PER CASE MANAGING, PATIENT WILL BE DISCHARGING TO [facility]. WELL LOGGING CAPTAIN MUD ANALYSIS TIME @ 1700.
--- NOTE | 2021-07-29 16:00 | NUR ---
RN NOTES CALLED [facility] AND GAVE REPORT TO CODY ALDRICH.
[2021-07-29 16:17] VITALS: BP 159/90
--- NOTE | 2021-07-29 18:15 | NUR ---
RADIOLOGY AIDE NOTES PATIENT MEDICALLY STABLE FOR DISCHARGE. DISCHARGE INSTRUCTIONS WERE PROVIDED. PATIENT ABLE TO VERBALIZE UNDERSTANDING. ALL BELONGINGS ACCOUNTED FOR AND DOCUMENTS SIGNED. IV ACCESS REMOVED AND ID BAND REMOVED. PATIENT LEFT FACILITY VIA GURNEY ACCOMPANIED BY TWO TECHNICAL AGRONOMIST IN AMBULANCE.
== END 2021-07-29 18:30 | DRG 862 ==
LOC: ER 20:48 → TELE 07-22 00:03 → MED 07-22 04:25
PROVIDERS: ADMIT Internal Medicine
PROC: 0FPB8DZ Removal of Intraluminal Device from Hepatobiliary Duct, Via Natural or Artificial Opening Endoscopic (ICD-10-PCS; principal; 2021-07-25)
PROC: 0F798DZ Dilation of Common Bile Duct with Intraluminal Device, Via Natural or Artificial Opening Endoscopic (ICD-10-PCS; 2021-07-25)
PROC: 0FC98ZZ Extirpation of Matter from Common Bile Duct, Via Natural or Artificial Opening Endoscopic (ICD-10-PCS; 2021-07-25)
DX: T85.848A Pain due to other internal prosthetic devices, implants and grafts, initial encounter (principal); N17.0 Acute kidney failure with tubular necrosis; A41.9 Sepsis, unspecified organism; J15.9 Unspecified bacterial pneumonia; E11.22 Type 2 diabetes mellitus with diabetic chronic kidney disease; I69.354 Hemiplegia and hemiparesis following cerebral infarction affecting left non-dominant side; E11.43 Type 2 diabetes mellitus with diabetic autonomic (poly)neuropathy; J44.0 Chronic obstructive pulmonary disease with (acute) lower respiratory infection; K80.50 Calculus of bile duct without cholangitis or cholecystitis without obstruction; K31.84 Gastroparesis; E86.0 Dehydration; E11.65 Type 2 diabetes mellitus with hyperglycemia; N39.0 Urinary tract infection, site not specified; N18.9 Chronic kidney disease, unspecified; Z79.4 Long term (current) use of insulin; R74.01 Elevation of levels of liver transaminase levels; D64.9 Anemia, unspecified; B95.1 Streptococcus, group B, as the cause of diseases classified elsewhere; K38.1 Appendicular concretions; Y83.8 Other surgical procedures as the cause of abnormal reaction of the patient, or of later complication, without mention of misadventure at the time of the procedure; Y92.009 Unspecified place in unspecified non-institutional (private) residence as the place of occurrence of the external cause; I12.9 Hypertensive chronic kidney disease with stage 1 through stage 4 chronic kidney disease, or unspecified chronic kidney disease; K21.9 Gastro-esophageal reflux disease without esophagitis; Z20.822 Contact with and (suspected) exposure to COVID-19
CPT/HCPCS: 36415; 71045-TC; 76770-TC; 80048-TC; 80053-TC; 80076-TC; 81001; 82010-TC; 82962-TC; 83605-TC; 83690-TC; 83735-TC; 84100-TC; 85025-TC; 85730-TC; 87040-TC; 87081-TC; 87086-TC; 97110-TC; 97112-TC; 97116-TC; 97530-TC; C9113; C9803; G0378; G0480; J0330; J0690; J1644; J1815; J2270; J2405; J2543; J2704; J2765; J3490; J7030; J7060; Q9966

== ENCOUNTER 2021-10-15 19:12 | Inpatient (IN) | payer MEDICAID ==
[~2021-10-15] VITALS: Ht 172.7 cm; Wt 98.9 kg
[~2021-10-15 19:12] MED LIST: AMLO10TA4 PO; ASCO500C17 PO; BENA40TA8 PO; CARV25TA PO; CLON0.1T PO; FOLI0.8C PO; HYDR12.55 PO; INSU100V39 SQ; INSU100V7 SQ; LIDOCAINE PATCH TD; MULT-447 PO; SODI1TAB66 PO; THIA100T74 PO
--- NOTE | 2021-10-15 19:15 | NUR ---
JESSICA FROM [facility] FOR CONFIRMED LEFT LEG DVT OF 10/15/20. C/O LEFT LEG PAIN 4/10 AND SWELLING. PATIENT CLAIMED HE TOOK SOME NORCO AT AROUND 1730.
[2021-10-15 19:52] LABS: BASOPHILS % (AUTO) 0.4 % (0.0-2.0); EOSINOPHILS % (AUTO) 1.4 % (0.0-6.0); HEMATOCRIT 38 % (39-51); LYMPHOCYTES # (AUTO) 1.5 K/uL (0.8-4.8); LYMPHOCYTES % (AUTO) 16.4 % (20.0-44.0); MEAN CORPUSCULAR HGB CONC 34 g/dl (31.0-36.0); MEAN CORPUSCULAR VOLUME 81 fL (80-96); MONOCYTES # (AUTO) 0.5 K/uL (0.1-1.30); MONOCYTES % (AUTO) 5.8 % (2.0-12.0); NEUTROPHILS # (AUTO) 6.8 K/uL (1.8-8.9); PLATELET COUNT (AUTO) 199 K/uL (150-450); RED BLOOD CELL COUNT(AUTO) 4.73 MIL/uL (4.5-6.0); WHITE BLOOD COUNT (AUTO) 8.9 K/uL (4.3-11.0)
[2021-10-15 20:05] LABS: CALCIUM, SERUM 8.9 mg/dL (8.5-10.1); CREATININE 1.8 mg/dL (0.6-1.3); POTASSIUM 4.2 mmol/L (3.5-5.1)
--- NOTE | 2021-10-15 20:30 | NUR ---
SUBMITTED MOVE SHEET
--- NOTE | 2021-10-15 21:47 | NUR ---
COVID SWAB DONE AND SENT TO LAB
--- NOTE | 2021-10-15 22:25 | NUR ---
[facility] PAGED
--- NOTE | 2021-10-15 23:07 | NUR ---
LEFT MESSAGE TO PABLO PA THAT PATIENT IS HAVING MUSCLE SPASM. IF SHE CAN PRESCRIBED MEDS. PABLO PA WILL CHECK PATIENT'S MEDS
[2021-10-16] VITALS (7 sets, daily range): BP systolic 115–157; BP diastolic 65–94
[2021-10-16] MEDS ORDERED: ACETAMINOPHEN 325 MG TABLET PO PRN
[2021-10-16] MEDS ORDERED: ONDANSETRON HCL/PF 4 MG/2 ML VIAL IVP PRN
[2021-10-16] MEDS ORDERED: HEPARIN INFUSION/D5W 500 ML IV PRN
[2021-10-16] MEDS ORDERED: DEXTROSE 50%-WATER 50 ML DISP.SYRIN IV PRN
[2021-10-16] MEDS ORDERED: CYCLOBENZAPRINE 10 MG TABLET PO ONE (00:30)
--- NOTE | 2021-10-16 00:39 | NUR ---
PATIENT STILL NOT ADMITTED. GAVE FLEXERIL 10MG PO FOR MUSCLE SPASM
--- NOTE | 2021-10-16 02:17 | NUR ---
PT WILL BE GOING TO BED 313-1 PER RN PHARMACY LABORATORY TECHNICIAN.
--- NOTE | 2021-10-16 02:35 | NUR ---
REPORT GIVEN TO CASTRO
[2021-10-16] MEDS ORDERED: HEPARIN INFUSION/D5W 500 ML IV ONE (02:38)
--- NOTE | 2021-10-16 02:40 | NUR ---
PATIENT BEING TRANSFERRED TO ROOM
--- NOTE | 2021-10-16 03:00 | NUR ---
DOWN FILLER NOTES PT A/O X4 ABLE TO MAKE NEEDS KNOWN. IN NO PAIN IN NO DISTRESS AT THIS TIME. ON ROOM AIR TOLERATING WELL. PT NOTED WITH IV ACCESS ON THE RFA#20G AND LFA#18G S/L PATENT FLUSHING WELL. PT NOTED WITH BILATERAL LEG DISCOLORATION PICTURES TAKEN AND PLACE DIN CHART PT ALSO NOTED WITH LLE NON PITTING EDEMA PT IS + FOR DVT. PT PLACED ON TELE MONITOR READING SR. PT NOTED WITH LEFT SIDED UPPER EXTREMITY WEAKNESS. ALL NURSING NEEDS MET. CALL LIGTH WITHIN REACH. TABLE WITHIN REACH. WILL CONTINUE TO MONITOR.
[2021-10-16] MEDS: LIDOCAINE 5% (PATCH) 1 EA PATCH TP SCH ×2 (03:29)
[2021-10-16] MEDS: CLONIDINE HCL 0.1 MG TABLET PO SCH ×3 (03:29→20:53)
[2021-10-16] MEDS ORDERED: HEPARIN SODIUM, PORCINE 5000 UNITS/1 ML VIAL IVP ONE (03:36)
[2021-10-16] MEDS: BLOOD SUGAR DIAGNOSTIC 1 EACH STRIP IN SCH ×4 (06:43→21:02)
[2021-10-16] MEDS: INSULIN REGULAR, HUMAN 100 UNIT/ML 3 ML VIAL SQ PRN ×4 (06:44→21:05)
--- NOTE | 2021-10-16 06:51 | NUR ---
RN NOTES PT A/O X4 ABLE TO MAKE NEEDS KNOWN. IN NO PAIN IN NO DISTRESS AT THIS TIME. ON ROOM AIR TOLERATING WELL. PT NOTED WITH IV ACCESS ON THE RFA#20G RUINING NS @75ML/HR AND LFA#18G RUNNING HEPARIN @1800 UNITS/HR TOLERATING WELL. PTT DRAW SCHEDULED FOR 2000 ORDER PLACED. NO SIGNS OF BLEEDING NO REDNESS OR SWELLING AT SIDE. ALL NURSING NEEDS MET. CALL LIGHT WITHIN REACH. TABLE WITHIN REACH. WILL ENDORSE TO DAY SHIFT FOR ANNA.
[2021-10-16 07:28] LABS: BASOPHILS % (AUTO) 0.5 % (0.0-2.0); EOSINOPHILS % (AUTO) 2.4 % (0.0-6.0); HEMATOCRIT 35 % (39-51); HEMOGLOBIN 12.1 g/dL (13.5-17.5); LYMPHOCYTES # (AUTO) 2.1 K/uL (0.8-4.8); LYMPHOCYTES % (AUTO) 28.7 % (20.0-44.0); MEAN CORPUSCULAR HGB CONC 35 g/dl (31.0-36.0); MEAN CORPUSCULAR VOLUME 81 fL (80-96); MONOCYTES # (AUTO) 0.5 K/uL (0.1-1.30); MONOCYTES % (AUTO) 6.8 % (2.0-12.0); NEUTROPHILS # (AUTO) 4.5 K/uL (1.8-8.9); NEUTROPHILS % (AUTO) 61.6 % (43.0-81.0); PLATELET COUNT (AUTO) 171 K/uL (150-450); RED BLOOD CELL COUNT(AUTO) 4.33 MIL/uL (4.5-6.0); WHITE BLOOD COUNT (AUTO) 7.3 K/uL (4.3-11.0)
--- NOTE | 2021-10-16 07:30 | NUR ---
MS RN OPENING NOTES RECEIVED PATIENT ON BED , AWAKE , A/O AND ABLE TO MAKE NEEDS KNOWN , ROOM AIR , NO SOB OR DISTRESS NOTED , LFA #18 G WITH HEPARIN DRIP AND RFA #20 G WITH NS @75 ML /HR , BREATHING EVEN AND UNLABORED , BED IN LOWEST POSITION , WILL MONITOR FOR ANY CHANGES
[2021-10-16 07:52] LABS: CALCIUM, SERUM 8.6 mg/dL (8.5-10.1); CREATININE 1.7 mg/dL (0.6-1.3); MAGNESIUM 1.8 mg/dL (1.8-2.4); PHOSPHORUS 3.6 mg/dL (2.5-4.9); POTASSIUM 4.1 mmol/L (3.5-5.1)
[2021-10-16] MEDS ORDERED: SUCR1TAB31 PO (08:53)
[2021-10-16] MEDS ORDERED: HYDR-4303 PO (08:53)
[2021-10-16] MEDS ORDERED: MAG30ORA PO (08:53)
[2021-10-16] MEDS ORDERED: ACET-868 PO (08:53)
[2021-10-16] MEDS ORDERED: PANT40TA2 PO (08:53)
[2021-10-16] MEDS: ASCORBIC ACID 500 MG TABLET PO SCH (09:44)
[2021-10-16] MEDS: SODIUM CHLORIDE 1000 MG TABLET PO SCH ×3 (09:46→17:15)
[2021-10-16] MEDS: FOLIC ACID 1 MG TABLET PO SCH (09:46)
[2021-10-16] MEDS: CARVEDILOL 6.25 MG TABLET PO SCH ×2 (09:46→17:16)
[2021-10-16] MEDS: MULTIVIT W/MINERALS 1 TAB TABLET PO SCH (09:47)
[2021-10-16] MEDS: HYDROCHLOROTHIAZIDE 25 MG TABLET PO SCH (09:47)
[2021-10-16] MEDS: AMLODIPINE BESYLATE 10 MG TABLET PO SCH (09:47)
[2021-10-16] MEDS: THIAMINE HCL 100 MG TABLET PO SCH (09:47)
[2021-10-16 11:37] LABS: THYROID STIMULATING HORMONE 2.996 uIU/mL (0.358-3.74)
[2021-10-16] MEDS: MORPHINE SULFATE INJ 2 MG/ML DISP.SYRIN IV PRN (16:06)
--- NOTE | 2021-10-16 16:06 | NUR ---
RN NOTE Patient complained of pain on LLE, PRN Morphine given. Will continue to monitor.
[2021-10-16] MEDS: IV NS 0.9% 1,000 ML IV PRN (17:29)
--- NOTE | 2021-10-16 19:00 | NUR ---
MS RN CLOSING NOTES RECEIVED PATIENT ON BED , AWAKE , A/O AND ABLE TO MAKE NEEDS KNOWN , ROOM AIR , NO SOB OR DISTRESS NOTED , ALL DUE MEDS GIVEN , BS WAS CHECKED AND INSULIN COVERAGE GIVEN , LFA #18 G WITH HEPARIN DRIP WAS DISCONTINUED AND RFA #20 G WITH NS @75 ML /HR , BREATHING EVEN AND UNLABORED , BED IN LOWEST POSITION , FOR STOOL OCCULT BLOOD COLLECTION , FOR U/A AND COLLECTED , WILL ENDORSED TO NEXT SHIFT
--- NOTE | 2021-10-16 19:20 | NUR ---
RN NOTE RECEIVED PT RESTING IN BED, EASILY AROUSABLE, A/OX4. NO C/O PAIN AT THIS TIME. RESPIRATIONS EVEN/UNLABORED. IV SITE: L-FA #18 AND R-FA#20 BOTH INTACT/PATENT/FLUSHES WELL. INFUSING NS @75ML/HR ON R-FA. PT IN NO ACUTE DISTRESS. ALL NEEDS ATTENDED TO. SAFETY MEASURES IN PLACE. WILL CONT TO MONITOR.
[2021-10-16 19:58] LABS: BILIRUBIN,URINE NEGATIVE (NEGATIVE); COLOR,URINE YELLOW (YELLOW); LEUKOCYTE ESTERASE ,URINE NEGATIVE (NEGATIVE); NITRITE, URINE NEGATIVE (NEGATIVE); PH,URINE 5.5 (5.0-8.0); PROTEIN,URINE TRACE mg/dl (NEGATIVE); UGLUCOSE NEGATIVE (NEGATIVE); UROBILINOGEN,URINE 0.2 EU/dL (0.2)
[2021-10-16 20:11] LABS: BACTERIA,URINE None seen /HPF (None Seen); RBC,URINE 0-2 /HPF (0-2); SPERM,URINE Few /HPF (None Seen); SQUAMOUS EPITHELIAL CELL,UR 0-2 /HPF (None Seen); WBC,URINE 0-2 /HPF (0-3)
[2021-10-17] MEDS: BLOOD SUGAR DIAGNOSTIC 1 EACH STRIP IN SCH ×4 (06:15→22:23)
[2021-10-17] MEDS: INSULIN REGULAR, HUMAN 100 UNIT/ML 3 ML VIAL SQ PRN ×4 (06:17→22:27)
--- NOTE | 2021-10-17 06:48 | NUR ---
RN NOTE PT RESTING IN BED, EASILY AROUSABLE, A/OX4. NO C/O PAIN AT THIS TIME. RESPIRATIONS EVEN/UNLABORED. ONGOING IVF OF NS @75ML/HR AND LASHELL WELL. PT SLEPT WELL DURING THE NIGHT. NO ACUTE DISTRESS NOTED. SAFETY MEASURES MAINTAINED.
[2021-10-17 06:50] LABS: CALCIUM, SERUM 8.8 mg/dL (8.5-10.1); CREATININE 1.4 mg/dL (0.6-1.3)
[2021-10-17 07:22] LABS: BASOPHILS % (AUTO) 0.5 % (0.0-2.0); EOSINOPHILS % (AUTO) 1.8 % (0.0-6.0); HEMATOCRIT 35 % (39-51); HEMOGLOBIN 11.8 g/dL (13.5-17.5); LYMPHOCYTES # (AUTO) 1.9 K/uL (0.8-4.8); LYMPHOCYTES % (AUTO) 24.5 % (20.0-44.0); MEAN CORPUSCULAR HGB CONC 34 g/dl (31.0-36.0); MEAN CORPUSCULAR VOLUME 81 fL (80-96); MONOCYTES # (AUTO) 0.6 K/uL (0.1-1.30); MONOCYTES % (AUTO) 7.8 % (2.0-12.0); NEUTROPHILS # (AUTO) 5.1 K/uL (1.8-8.9); NEUTROPHILS % (AUTO) 65.4 % (43.0-81.0); PLATELET COUNT (AUTO) 185 K/uL (150-450); RED BLOOD CELL COUNT(AUTO) 4.38 MIL/uL (4.5-6.0); WHITE BLOOD COUNT (AUTO) 7.7 K/uL (4.3-11.0)
--- NOTE | 2021-10-17 07:30 | NUR ---
MS RN OPENING NOTES RECEIVED PATIENT ON BED , AWAKE , A/O AND ABLE TO MAKE NEEDS KNOWN , ROOM AIR , NO SOB OR DISTRESS NOTED , LFA #18 G AND RFA #20 G WITH NS @75 ML /HR , BREATHING EVEN AND UNLABORED , BED IN LOWEST POSITION , SCHEDULE FOR CT OF THE HEAD W/O CONTRAST TODAY AND PATIENT AWARE . WILL MONITOR FOR ANY CHANGES
[2021-10-17 08:06] VITALS: BP 146/88
--- NOTE | 2021-10-17 09:00 | NUR ---
RN NOTES PATIENT WENT FOR CT OF THE HEAD PROCEDURE
[2021-10-17] MEDS: FOLIC ACID 1 MG TABLET PO SCH (09:46)
[2021-10-17] MEDS: CLONIDINE HCL 0.1 MG TABLET PO SCH ×2 (09:47→21:07)
[2021-10-17] MEDS: CARVEDILOL 6.25 MG TABLET PO SCH ×2 (09:48→17:47)
[2021-10-17] MEDS: THIAMINE HCL 100 MG TABLET PO SCH (09:49)
[2021-10-17] MEDS: MULTIVIT W/MINERALS 1 TAB TABLET PO SCH (09:49)
[2021-10-17] MEDS: SODIUM CHLORIDE 1000 MG TABLET PO SCH ×3 (09:49→17:47)
[2021-10-17] MEDS: HYDROCHLOROTHIAZIDE 25 MG TABLET PO SCH (09:49)
[2021-10-17] MEDS: ASCORBIC ACID 500 MG TABLET PO SCH (09:50)
[2021-10-17] MEDS: AMLODIPINE BESYLATE 10 MG TABLET PO SCH (09:50)
--- NOTE | 2021-10-17 10:00 | NUR ---
RN NOTE Patient brought back to room 313-1 form radiology.
[2021-10-17] MEDS: MORPHINE SULFATE INJ 2 MG/ML DISP.SYRIN IV PRN (13:09)
--- NOTE | 2021-10-17 13:09 | NUR ---
RN NOTE Patient complained of pain on LLE, PRN Morphine given. Will continue to monitor.
[2021-10-17] MEDS: HEPARIN INFUSION/D5W 500 ML IV PRN (14:26)
[2021-10-17] MEDS ORDERED: HEPARIN SODIUM, PORCINE 5000 UNITS/1 ML VIAL IV ONE (14:30)
[2021-10-17] MEDS: IV NS 0.9% 1,000 ML IV PRN (15:51)
[2021-10-17 16:19] VITALS: BP 122/72
[2021-10-17] MEDS: FERROUS SULFATE (325 MG) 325 MG/TAB TABLET PO SCH (17:47)
--- NOTE | 2021-10-17 19:12 | NUR ---
MS RN CLOSING NOTE Patient in bed, asleep. A/O x 4, able to make needs known. On room air, breathing evenly and unlabored. No SOB or s/s of distress noted. IV access on RFA #20 infusing Ns at 75 ml/hr and LFA #18 infusing Heparin drip at 1800units/hr (36ml/hr). All needs attended to. Due meds given. Safety precautions maintained: bed in low, locked position; siderails up x 2; call light within reach. Will endorse to manager laboratory nurse for ANNA.
--- NOTE | 2021-10-17 19:15 | NUR ---
RN NOTE RECEIVED PT AWAKE IN BED, A/OX4. NO C/O PAIN AT THIS TIME. DENIES SOB. IV SITE: L-FA #18 AND R-FA#20 BOTH INTACT/PATENT, INFUSING NS @75ML/HR ON R-FA, AND HEPARIN GTT @36ML/HR ON L-FA. NO S/S OF BLEEDING NOTED. PT IN NO ACUTE DISTRESS. SAFETY MEASURES IN PLACE. WILL CONT TO MONITOR.
[2021-10-17] MEDS ORDERED: MAGNESIUM HYDROXIDE 30 ML UDC PO PRN (19:30)
[2021-10-17 20:00] VITALS: BP 140/79
--- NOTE | 2021-10-17 20:30 | NUR ---
Stool specimen collected
--- NOTE | 2021-10-17 21:50 | NUR ---
RN NOTE RECEIVED CRIT RESULT PTT >170. HEPARIN DRIP STOPPED, AND CALLED TO ON-CALL CATALINA RENTERIA DNP WITH ORDER TO RE-CHECK PTT IN 6HRS, CONTINUE TO HOLD HEPARIN UNTIL PTT RESULT IS RECEIVED. Addendum: 10/17/21 at 2242 by AURORA DOWLING RN PER PROTOCOL TO STOP HEPARIN DRIP AND TO CALL PHYSICIAN IF >130
[2021-10-17] MEDS: LIDOCAINE 5% (PATCH) 1 EA PATCH TP SCH ×2 (23:19)
[2021-10-18] MEDS: MORPHINE SULFATE INJ 2 MG/ML DISP.SYRIN IV PRN (03:27)
[2021-10-18 04:32] LABS: BASOPHILS # (AUTO) 0.1 K/uL (0.0-0.2); BASOPHILS % (AUTO) 0.9 % (0.0-2.0); EOSINOPHILS % (AUTO) 1.9 % (0.0-6.0); HEMATOCRIT 35 % (39-51); LYMPHOCYTES % (AUTO) 29.5 % (20.0-44.0); MEAN CORPUSCULAR HGB CONC 34 g/dl (31.0-36.0); MEAN CORPUSCULAR VOLUME 81 fL (80-96); MONOCYTES # (AUTO) 0.5 K/uL (0.1-1.30); MONOCYTES % (AUTO) 7.8 % (2.0-12.0); NEUTROPHILS % (AUTO) 59.9 % (43.0-81.0); PLATELET COUNT (AUTO) 177 K/uL (150-450); WHITE BLOOD COUNT (AUTO) 6.6 K/uL (4.3-11.0)
[2021-10-18 05:07] LABS: IMMUNOGLOBULIN A, SERUM 417 mg/dL (90-386); IMMUNOGLOBULIN G, SERUM 1297 mg/dL (603-1613); IMMUNOGLOBULIN M, SERUM 48 mg/dL (20-172)
[2021-10-18 05:36] LABS: CALCIUM, SERUM 8.6 mg/dL (8.5-10.1); CREATININE 1.4 mg/dL (0.6-1.3); POTASSIUM 4.1 mmol/L (3.5-5.1)
--- NOTE | 2021-10-18 07:00 | NUR ---
RN NOTE PTT RESULT 29.1, REPORTED TO ON-CALL HOSP MYRA, DNP
[2021-10-18 07:07] LABS: *SPE A/G RATIO 0.8 (0.7-1.7); *SPE ALPHA-1-GLOBULIN 0.2 g/dL (0.0-0.4); *SPE M-SPIKE 0.4 g/dL (Not Observed)
[2021-10-18] MEDS: BLOOD SUGAR DIAGNOSTIC 1 EACH STRIP IN SCH ×4 (07:08→21:57)
[2021-10-18] MEDS: INSULIN REGULAR, HUMAN 100 UNIT/ML 3 ML VIAL SQ PRN ×4 (07:15→22:02)
--- NOTE | 2021-10-18 07:40 | NUR ---
RN MS OPENING NOTE PATIENT RECEIVED RESTING IN BED. A/OX4. NO S/SX OF RESPIRATORY DISTRESS OR C/O PAIN AT TIME OF ASSESSMENT. BOTH IV ACCESS SITES TO LFA & RFA INTACT, PATENT AND FLUSHING WELL. NS RUNNING @ 75ML/HR IN RFA. SAFETY MEASURES IN PLACE WITH BED IN LOWEST POSITION AND LOCKED. SIDERAIL UP X2. CALL LIGHT WITHIN REACH. WILL CONT TO MONITOR.
[2021-10-18] MEDS: IV NS 0.9% 1,000 ML IV PRN (07:44)
[2021-10-18 08:00] VITALS: BP 136/78
[2021-10-18] MEDS: HEPARIN INFUSION/D5W 500 ML IV PRN (08:04)
[2021-10-18] MEDS: ASCORBIC ACID 500 MG TABLET PO SCH (09:13)
[2021-10-18] MEDS: THIAMINE HCL 100 MG TABLET PO SCH (09:13)
[2021-10-18] MEDS: SODIUM CHLORIDE 1000 MG TABLET PO SCH ×3 (09:14→17:24)
[2021-10-18] MEDS: FERROUS SULFATE (325 MG) 325 MG/TAB TABLET PO SCH ×2 (09:14→17:24)
[2021-10-18] MEDS: MULTIVIT W/MINERALS 1 TAB TABLET PO SCH (09:14)
[2021-10-18] MEDS: FOLIC ACID 1 MG TABLET PO SCH (09:14)
[2021-10-18] MEDS: HYDROCHLOROTHIAZIDE 25 MG TABLET PO SCH (09:15)
[2021-10-18] MEDS: AMLODIPINE BESYLATE 10 MG TABLET PO SCH (09:15)
[2021-10-18] MEDS: CLONIDINE HCL 0.1 MG TABLET PO SCH ×2 (09:16→20:34)
[2021-10-18] MEDS: CARVEDILOL 6.25 MG TABLET PO SCH ×2 (09:16→17:25)
[2021-10-18 13:01] LABS: OCCULT BLOOD STOOL NEGATIVE (NEGATIVE)
[2021-10-18 16:00] VITALS: BP 118/69
--- NOTE | 2021-10-18 18:30 | NUR ---
RN CLOSING NOTE PATIENT A/OX4. NO S/SX OF DISTRESS OR PAIN REPORTED OR OBSERVED ON SHIFT. PTT @ 0804 WAS 29.1. HEPARIN DRIP RESUMED PER PHARMACY PROTOCOL @ 1500UNIT/HR. PTT RETAKEN @ 1400 WITH RESULT OF 55.3. NO CHANGE IN HEPARIN DOSAGE AT THIS TIME. SCHEDULED TO BE RETAKEN @ 0600 10/19/21. PATIENT TOLERATED HEPARIN DRIP WELL ON SHIFT. BLOOD SUGAR READINGS 154 (2UNIT INSULIN COVERAGE GIVEN) AND 195 (3UNIT INSULIN COVERAGE GIVEN) ON SHIFT. TOLERATED WELL. IV ACCESS TO LFA AND RFA BOTH PATENT AND INTACT. SAFETY MEASURES IN PLACE WITH BED AT LOWEST POSITION AND LOCKED. SIDERAIL UP X2 AND CALL LIGHT WITHIN REACH. WILL CONTINUE TO MONITOR.
--- NOTE | 2021-10-18 19:10 | NUR ---
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 -ORIENTED TO UNIT AND STAFF, GIVEN INSTRUCTION TO REPORT ANY SIGN OF BLEEDING IN THE ORIFICE.ON CLOSE WATCH.KEPT CALL LIGHT WITHIN EASY REACH, FALL AND SAFETY PRECAUTION OBSERVED.
[2021-10-18 20:00] VITALS: BP 125/71
--- NOTE | 2021-10-18 21:43 | NUR ---
RN NOTES: -AT 2135 PTT RESULT=61.9, CHARGE NURSE NOTIFIED, PER PROTOCOL OF HEPARIN DRIP NO CHANGE IN RATE TO CONTINUE 1,500 UNITS/HR, FOR PT/PTT/INR IN THE MORNING AT 0600.
--- NOTE | 2021-10-18 22:08 | NUR ---
RN NOTES: BLOOD SUGAR CHECK-230, INSULIN GIVEN PER SCALE WILL CONTINUE TO MONITOR FOR SIGN OF HYPER/HYPOGLYCEMIA.
[2021-10-19] MEDS: LIDOCAINE 5% (PATCH) 1 EA PATCH TP SCH
--- NOTE | 2021-10-19 00:05 | NUR ---
RN NOTES: PATIENT VERBALIZED HE WANNTS INJECTION HE REFUSED FOR HIS LIDOCAINE PATCH, HE SAID "I DONT WANT IT GIVE ME INJECTION PLEASE", GIVEN NON PHARMACOLOGIC INTERVENTION RENDRED.
[2021-10-19] MEDS: MORPHINE SULFATE INJ 2 MG/ML DISP.SYRIN IV PRN ×2 (00:07→14:29)
[2021-10-19] MEDS: HEPARIN INFUSION/D5W 500 ML IV PRN (00:12)
--- NOTE | 2021-10-19 00:17 | NUR ---
RN NOTES: HEPARIN DRIP CONSUMED, NEW BAG STARTED, WITNESSED BY ANOTHER RN, CONTINUE ON HEPARIN DRIP AT 1,500 UNITS.
[2021-10-19] MEDS: IV NS 0.9% 1,000 ML IV PRN (06:05)
--- NOTE | 2021-10-19 06:05 | NUR ---
RN NOTES: IVF CONSUME, REPLACED WITH NS , UNABLE TO SCAN, MANUAL BARCODE ENTERED. -IVF ON NS AT 75 ML/HR STARTED.
[2021-10-19 06:29] LABS: BASOPHILS % (AUTO) 0.6 % (0.0-2.0); EOSINOPHILS % (AUTO) 1.7 % (0.0-6.0); HEMATOCRIT 35 % (39-51); HEMOGLOBIN 12.1 g/dL (13.5-17.5); LYMPHOCYTES # (AUTO) 2.2 K/uL (0.8-4.8); LYMPHOCYTES % (AUTO) 34.6 % (20.0-44.0); MEAN CORPUSCULAR HGB CONC 35 g/dl (31.0-36.0); MEAN CORPUSCULAR VOLUME 80 fL (80-96); MONOCYTES # (AUTO) 0.5 K/uL (0.1-1.30); MONOCYTES % (AUTO) 7.2 % (2.0-12.0); NEUTROPHILS # (AUTO) 3.6 K/uL (1.8-8.9); NEUTROPHILS % (AUTO) 55.9 % (43.0-81.0); PLATELET COUNT (AUTO) 179 K/uL (150-450); RED BLOOD CELL COUNT(AUTO) 4.34 MIL/uL (4.5-6.0); WHITE BLOOD COUNT (AUTO) 6.4 K/uL (4.3-11.0)
[2021-10-19] MEDS: BLOOD SUGAR DIAGNOSTIC 1 EACH STRIP IN SCH ×3 (06:30→17:22)
[2021-10-19] MEDS: INSULIN REGULAR, HUMAN 100 UNIT/ML 3 ML VIAL SQ PRN ×3 (06:42→17:25)
--- NOTE | 2021-10-19 06:43 | NUR ---
RN NOTES: BLOOD SUGAR-176, GIVEN INSULIN PER SCALE, WILL CONTINUE TO MONITOR FOR SIGN OF HYPER/HYPOGLYCEMIA.
[2021-10-19 07:01] LABS: CALCIUM, SERUM 8.7 mg/dL (8.5-10.1); CREATININE 1.2 mg/dL (0.6-1.3); POTASSIUM 4.1 mmol/L (3.5-5.1)
--- NOTE | 2021-10-19 07:20 | NUR ---
RN OPENING NOTES RECEIVED PATIENT IN BED. AWAKE, A/O X4, VERBALLY RESPONSIVE. NO SIGNS OF ACUTE DISTRESS NOTED. ON ROOM AIR, NO SOB NOTED, BREATHING EVEN AND UNLABORED.DENIES ANY PAIN OR DISCOMFORT AT THIS TIME. NOTED WITH IV ACCESS ON LEFT FOREARM #18G, INTACT AND PATENT WITH HEPARIN DRIP @1500 UNITS/HR RUNNING. ALSO WITH IV ACCESS ON RIGHT FOREARM #20G, INTACT AND PATENT WITH NS @ 75 ML/HR RUNNING. SAFETY MEASURE IN PLACE.ED IN LOWEST AND LOCKED POSITION, SIDE RAILS UP X2, CALL LIGHT PLACED WITHIN EASY REACH. WILL CONTINUE TO MONITOR PATIENT.
--- NOTE | 2021-10-19 07:52 | NUR ---
RN NOTES: ON HEPARIN DRIP,AWAITING FOR THE PTT RESULT, PATIENT REMAIN STABLE NO SIGN OF BLEEDING, KEPT MONITORED, NO PAIN ION THE MORNING, KEPT IN COMFORTABLE POSITION,ENDORSED FOR CONTINUITY OF CARE FOR LABS IN THE MORNING.
[2021-10-19 08:00] VITALS: BP 122/70
[2021-10-19] MEDS: FOLIC ACID 1 MG TABLET PO SCH (09:06)
[2021-10-19] MEDS: CARVEDILOL 6.25 MG TABLET PO SCH ×2 (09:08→17:22)
[2021-10-19] MEDS: MULTIVIT W/MINERALS 1 TAB TABLET PO SCH (09:08)
[2021-10-19] MEDS: AMLODIPINE BESYLATE 10 MG TABLET PO SCH (09:08)
[2021-10-19] MEDS: SODIUM CHLORIDE 1000 MG TABLET PO SCH ×3 (09:08→17:22)
[2021-10-19] MEDS: CLONIDINE HCL 0.1 MG TABLET PO SCH (09:09)
[2021-10-19] MEDS: HYDROCHLOROTHIAZIDE 25 MG TABLET PO SCH (09:09)
[2021-10-19] MEDS: ASCORBIC ACID 500 MG TABLET PO SCH (09:09)
[2021-10-19] MEDS: THIAMINE HCL 100 MG TABLET PO SCH (09:10)
[2021-10-19] MEDS: FERROUS SULFATE (325 MG) 325 MG/TAB TABLET PO SCH ×2 (09:20→17:21)
[2021-10-19] MEDS ORDERED: APIX5TAB4 PO (09:48)
[2021-10-19] MEDS: TIZANIDINE HCL 4 MG TABLET PO SCH ×2 (10:03→12:31)
--- NOTE | 2021-10-19 10:10 | NUR ---
RN NOTES RECEIVED NEW ORDER TO DISCONTINUE HEPARIN DRIP PER MD. PATIENT FOR DISCHARGE TODAY. WILL START ON ELIQUIS UPON DISCHARGE.
--- NOTE | 2021-10-19 12:31 | NUR ---
RN NOTES VERIFIED WITH PHARMACY REGARDING ZANAFLEX THAT NOT TO GIVE SINCE PATIENT JUST GOT THE DOSE @ 1000
[2021-10-19 16:00] VITALS: BP 136/73
--- NOTE | 2021-10-19 16:05 | NUR ---
RN NOTES PATIENT FOR DISCHARGE TODAY BACK TO [facility]. REPORT GIVEN TO ELINOR ROSS. PATIENT'S MOTHER NERY MADE AWARE VIA TRANSLATION OF JOSE, UNIT SEC., REGARDING TRANSFER BACK TO SNF, APPRECIATIVE OF CALL.
[2021-10-19 17:22] VITALS: BP 136/73
--- NOTE | 2021-10-19 19:02 | NUR ---
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 PATIENT REMAINS AWAKE, ALERT AND ORIENTED X4, VERBALLY RESPONSIVE AND ABLE TO MAKE NEEDS KNOWN. IV ACCESS REMOVED, NO BLEEDING NOTED. PRESSURE DRESSING APPLIED TO SITE. PHOTOS OF SKIN ISSUES TAKEN, PLACED IN CHART. ALL BELONGINGS ACCOUNTED FOR. FORM SIGNED BY PATIENT. REPORT GIVEN TO C[facility]ICH. PT'S MOTHER AWARE OF TRANSFER. PATIENT PICKED UP BY AMBULANCE VIA GURNEY. LEFT UNIT @1900. CN AWARE OF DISCHARGE.
== END 2021-10-19 19:00 | DRG 197 ==
LOC: ER 19:22 → MED 10-16 02:23
PROVIDERS: ADMIT Nurse Practitioner Acute Care; ATTEND Internal Medicine
DX: I82.412 Acute embolism and thrombosis of left femoral vein (principal); D68.69 Other thrombophilia; E11.22 Type 2 diabetes mellitus with diabetic chronic kidney disease; I82.432 Acute embolism and thrombosis of left popliteal vein; I13.0 Hypertensive heart and chronic kidney disease with heart failure and stage 1 through stage 4 chronic kidney disease, or unspecified chronic kidney disease; I50.9 Heart failure, unspecified; D64.9 Anemia, unspecified; I69.354 Hemiplegia and hemiparesis following cerebral infarction affecting left non-dominant side; E61.1 Iron deficiency; N18.9 Chronic kidney disease, unspecified; Z79.4 Long term (current) use of insulin; K21.9 Gastro-esophageal reflux disease without esophagitis; J44.9 Chronic obstructive pulmonary disease, unspecified; Z86.718 Personal history of other venous thrombosis and embolism; Z74.09 Other reduced mobility; M79.662 Pain in left lower leg; R10.9 Unspecified abdominal pain; Z20.822 Contact with and (suspected) exposure to COVID-19; E11.65 Type 2 diabetes mellitus with hyperglycemia
CPT/HCPCS: 36415; 70450-TC; 76770-TC; 80048-TC; 80061-TC; 81001; 82232; 82272-TC; 82378; 82570-TC; 82607-TC; 82728-TC; 82784; 82962-TC; 83540-TC; 83735-TC; 84100-TC; 84155; 84165; 84300-TC; 84443-TC; 85025-TC; 85610-TC; 85730-TC; 86334; 93971-TC; 97530-TC; C9803; G0378; J1644; J1815; J2270; J7030